=== PATIENT | female | born 1990 | race Caucasian/White ===

== ENCOUNTER 2019-04-26 17:38 | Emergency (ER) | payer BC ==
[~2019-04-26] VITALS: Ht 175.3 cm; Wt 105.7 kg
[2019-04-26 17:46] VITALS: Ht 175.3 cm; Wt 105.7 kg
[2019-04-26 18:46] LABS: BASOPHIL % 0.8 % (0-2); PLATELET COUNT 272 x10^3mcL (130-400); RED CELL DISTRIBUTION WIDTH 13.1 % (11.5-14.5)
[2019-04-26 19:00] LABS: CALCIUM 8.8 mg/dL (8.5-10.1); CARBON DIOXIDE 26.1 mmol/L (21-32); CHLORIDE SERUM 101 mmol/L (98-107); CREATININE SERUM 0.7 mg/dL (0.6-1.0); GFR1 > 60 mL/min; GLUCOSE SERUM 93 mg/dL (74-106); POTASSIUM SERUM 3.8 mmol/L (3.5-5.1); SODIUM SERUM 137 mmol/L (136-145)
[2019-04-26 19:05] LABS: ALBUMIN 3.6 g/dL (3.4-5.0); ALKALINE PHOSPHATASE 75 U/L (46-116); ALT/SGPT 35 U/L (14-59); AST/SGOT 23 U/L (15-37); BILIRUBIN TOTAL 0.5 mg/dL (0.20-1.00); TOTAL PROTEIN, SERUM 8.2 g/dL (6.4-8.2)
[2019-04-26 22:01] VITALS: BP 1111/66
== END 2019-04-26 22:01 | disposition home or self-care (01) ==
LOC: ED 17:38
PROVIDERS: Internal Medicine Critical Care Medicine
DX: J18.9 Pneumonia, unspecified organism (principal); J32.9 Chronic sinusitis, unspecified; E03.9 Hypothyroidism, unspecified
CPT/HCPCS: 36415; 87804; J0696; J1885; J7512; J7620